=== PATIENT | male | born 1950 | race Caucasian/White ===

== ENCOUNTER 2017-03-20 05:17 | Inpatient (IN) | payer OTHER ==
[2017-03-20] VITALS (22 sets, daily range): BP systolic 87–117; BP diastolic 56–70; PULSE 78–102; RESP 17–24; Ht 168.9 cm; Wt 86.3 kg
[~2017-03-20] VITALS: Ht 168.9 cm; Wt 86.3 kg
[2017-03-20] MEDS ORDERED: CEFAZOLIN 2 GM/50 ML (PMX) 50 ML IVPB ONE (05:30)
[2017-03-20] MEDS ORDERED: OMEP40CA6 PO (06:04)
[2017-03-20] MEDS ORDERED: CANA300T PO (06:04)
[2017-03-20] MEDS ORDERED: DUTA1CPM PO (06:04)
[2017-03-20] MEDS ORDERED: ATOR10TA65 PO (06:04)
[2017-03-20] MEDS ORDERED: MELO7.5O PO (06:04)
[2017-03-20] MEDS ORDERED: ASPI-535 PO (06:04)
[2017-03-20] MEDS ORDERED: THROMBIN 5000 UNIT VIAL ONE (06:46)
[2017-03-20] MEDS ORDERED: BUPIVACAINE 0.25% (MPF) 30 ML INJ ONE (06:46)
[2017-03-20] MEDS ORDERED: BUPIVACAINE 0.25%/EPI (SDV) 30 ML INJ ONE (06:46)
[2017-03-20] MEDS ORDERED: GELATIN SIZE 100 SPONGE ONE (06:46)
[2017-03-20] MEDS ORDERED: POLYMYXIN/BACITRACIN 1L IRRIG ONE (06:47)
[2017-03-20] MEDS ORDERED: HETASTARCH 6% NACL 500 ML BAG ONE (07:00)
[2017-03-20] MEDS ORDERED: MIDAZOLAM 1 MG/ML 2 ML INJ ONE (07:26)
[2017-03-20] MEDS ORDERED: SUCCINYLCHOLINE CHLORIDE 100 MG/5 ML SYG IV ONE (07:26)
[2017-03-20] MEDS ORDERED: FENTAnyl 50 MCG/ML VIAL ONE (07:26)
[2017-03-20] MEDS ORDERED: ROCURONIUM 50 MG INJ ONE ×3 (07:26→09:13)
[2017-03-20] MEDS ORDERED: PROPOFOL 100 ML ONE ×2 (07:26→08:07)
--- NOTE | 2017-03-20 07:26 | HPN ---
Date/Time of Note Date/Time of Note DATE: 03/20/17 TIME: 07:26 Interval H&P Admission Note Pt. seen H&P reviewed: No system changes RICK EPSTEIN MD Mar 20, 2017 07:26
[2017-03-20] MEDS ORDERED: hydrALAzine 20 MG INJ ONE (08:06)
[2017-03-20] MEDS ORDERED: LABETALOL HCL 20MG INJ ONE (08:06)
[2017-03-20] MEDS ORDERED: METOCLOPRAMIDE 10 MG INJ ONE (08:08)
[2017-03-20] MEDS ORDERED: ACETAMINOPHEN 1000MG/100ML IV 100 ML ONE (08:08)
[2017-03-20] MEDS ORDERED: DEXAMETHASONE 4 MG/ML 1 ML INJ ONE (08:08)
[2017-03-20] MEDS ORDERED: FAMOTIDINE 20 MG INJ ONE (08:08)
[2017-03-20] MEDS ORDERED: ONDANSETRON 4 MG INJ ONE (08:08)
[2017-03-20] MEDS ORDERED: PHENYLephrine (100 MCG/ML) 5ML SYG ONE ×2 (08:34→09:11)
[2017-03-20] MEDS ORDERED: GLYCOPYRROLATE 0.4 MG INJ ONE (11:23)
[2017-03-20] MEDS ORDERED: NEOSTIGMINE 3 MG/3 ML SYRINGE ONE (11:23)
[2017-03-20] MEDS ORDERED: CEFAZOLIN 1 GM INJ ONE ×2 (11:28)
[2017-03-20] MEDS ORDERED: ONDANSETRON 4 MG INJ IV PRN ×2 (11:30→13:00)
[2017-03-20] MEDS ORDERED: hydrALAzine 20 MG INJ IV PRN (11:30)
[2017-03-20] MEDS ORDERED: METOCLOPRAMIDE 10 MG INJ IV PRN (11:30)
[2017-03-20] MEDS ORDERED: EPHEDrine SULFATE 50 MG/5 ML SYG IV PRN (11:30)
[2017-03-20] MEDS ORDERED: ALBUMIN HUMAN 5% 250 ML IV PRN (11:30)
[2017-03-20] MEDS ORDERED: MEPERIDINE 25 MG INJ IV PRN (11:30)
[2017-03-20] MEDS ORDERED: HYDROmorphONE (0.2 MG/ML) 10ML SYG IV PRN ×3 (11:30)
[2017-03-20] MEDS ORDERED: morphine (1 MG/ML) 10ML SYRINGE IV PRN ×3 (11:30)
[2017-03-20] MEDS ORDERED: DIPHENHYDRAMINE 50 MG INJ IV PRN (11:30)
[2017-03-20] MEDS ORDERED: LABETALOL HCL 20MG INJ IV PRN (11:30)
--- NOTE | 2017-03-20 12:23 | OPR ---
Date/Time of Note Date/Time of Note DATE: 03/20/17 TIME: 12:20 Operative Report Procedure Date: Mar 20, 2017 Preoperative Diagnosis Spinal stenosis, L3-L5 Postoperative Diagnosis Spinal stenosis, L3-L5 Operation Performed Bilateral laminectomies, L3-L4, L4-L5 Surgeon: KODAK MOSS MD commercial real estate assistant: RICK EPSTEIN MD Anesthesia: general Estimated Blood Loss: 10 - 50 ml's Complications: None Pt Condition Post Procedure: stable Disposition: PACU Operative\Procedure Findings L3-L5 bilateral minimally invasive laminectomies from right sided approach. KODAK MOSS MD Mar 20, 2017 12:23
--- NOTE | 2017-03-20 12:39 | OPR ---
Date/Time of Note Date/Time of Note DATE: 03/20/17 TIME: 12:24 Operative Report Procedure Date: Mar 20, 2017 Preoperative Diagnosis Spinal stenosis, L3-L5 Postoperative Diagnosis Spinal stenosis, L3-L5 Operation Performed Bilateral laminectomies, L3-L4, L4-L5 Surgeon: KODAK MOSS MD office administrative assistant: RICK EPSTEIN MD Anesthesia: general Estimated Blood Loss: 10 - 50 ml's Complications: None Pt Condition Post Procedure: stable Disposition: PACU Operative\Procedure Findings L3-L5 bilateral minimally invasive laminectomies from right sided approach. Procedure Description The patient was identified in the holding unit, and his questions were answered. He was taken to the operating room, given a general endotracheal and placed prone. Pressure points were checked. Appropriate lines and spinal monitoring was begun. After prep and drape and suitable marker films, a 1.5 inch incision, about 3/4 inch to the right of the midline was made. Skin had been infiltrated with marcaine with epinephrine. Fascia was incised sharply. Paraspinous muscles carefully peeled blunted from midline structures. [place] retractor inserted. L4-L5 level identified. Curettes used to removed soft tissue from bone. Drill used to removed lateral aspect of facet, lamina up to the arch, and lamina across the midline. Ligament then removed in several large blocks. Decompression inspect laterally to pedicle, well across midline to contralateral facet, and proximally and distally. [place] repositioned over L3-L4 and marker taken. Soft tissue removed from bone. Drill used to remove lateral aspect of facet, most of the L3 lamina, and medially across the midline , with removal of portion of spinous process. Ligament removed in several large blocks. Decompression inspected distally to arch, laterally to pedicle, proximally up the lamina, and across medline to contralateral facet. Attention then directed to arch. [place] adjusted. Arch dissected free of soft tissue. Patties under arch. Drilled from distal to proximal, leaving a small amount of bone. Residual bone removed with Kerr[place]. A kink in the dura, from the arch compression, was noted, and we observed it as sac diameter expanded. Wound was carefully irrigated and inspected for bleeding. It was dry. Retractors removed. Muscle infiltated with Marcaine with epinephrine. Fascia closed figure of 8 interupted with 0 vicryl. Care taken to close both layers Subcutaneous tissue with 2-0 figure of 8 vicryl. Skin with 4 monocryl and reenforced with dermbond and then dressed. returned to supine position for extubation. extubated and transferred to recovery in stable condition. KODAK MOSS MD Mar 20, 2017 12:39
[2017-03-20] MEDS ORDERED: NACL 0.9% 3 ML SYG IV SCH (13:00)
[2017-03-20] MEDS ORDERED: HYDROmorphONE 0.2 MG/ML PCA IV SCH (13:00)
[2017-03-20] MEDS ORDERED: ZOLPIDEM 5 MG TAB PO PRN (13:00)
[2017-03-20] MEDS ORDERED: NALOXONE (0.4 MG/ML) INJ IV PRN (13:00)
[2017-03-20] MEDS ORDERED: PROCHLORPERAZINE 10 MG TAB PO PRN (13:00)
[2017-03-20] MEDS ORDERED: ACETAMINOPHEN 325 MG TAB PO PRN (13:00)
[2017-03-20] MEDS ORDERED: HYDROCODONE/APAP (5/325) TAB PO PRN (13:00)
[2017-03-20] MEDS: DEXTROSE 5%-0.45% NACL 1,000 ML IV SCH (15:02)
--- NOTE | 2017-03-20 15:36 | RADRPT ---
PROCEDURE: XR Lumbar Spine. CLINICAL INDICATION: Laminectomy. TECHNIQUE: Lumbar spine x-rays, 3 intraoperative fluoroscopic views. Fluoroscopy time: 11.2 secon ds. COMPARISON: None currently available. FINDINGS: Surgical instrumentation is seen within the posterior soft tissues of the lower lumbar spine. L4-S1 degenerative disk disease is observed. IMPRESSION: L4-S1 degenerative disk disease with surgical instrumentation within the posterior lumbar soft tissu es. RPTAT: HLST .Rea Celestin MD, MD Date Time Electronically viewed and signed by .Rea Celestin MD, MD on 03/20/2017 15:36 .T/
[2017-03-20] MEDS: CEFAZOLIN 1 GM/50 ML (PMX) 50 ML IVPB SCH ×2 (17:34→23:36)
[2017-03-20] MEDS: CEPASTAT LOZENGE MT PRN (20:47)
[2017-03-21] MEDS: DEXTROSE 5%-0.45% NACL 1,000 ML IV SCH ×2 (00:23→08:39)
[2017-03-21 00:27] VITALS: BP 101/59; PULSE 89; RESP 20
[2017-03-21] MEDS: CEPASTAT LOZENGE MT PRN (04:49)
[2017-03-21] MEDS: CEFAZOLIN 1 GM/50 ML (PMX) 50 ML IVPB SCH ×2 (05:47→13:16)
--- NOTE | 2017-03-21 07:36 | PN ---
Date/Time of Note Date/Time of Note DATE: 03/21/17 TIME: 07:34 Assessment/Plan Lines/Catheters IV Catheter Type (from Nrsg): Peripheral IV Celis in Place (from Nrsg): Yes Subjective 24 Hr Interval Summary Seeing patient for Dr. Fabian. Patient is postop day #1 following lumbar laminectomy. Vital signs are stable, neurovascular structures are intact. Patient has been up ambulating with physical therapy and they are due to see him today also. He denies any leg pain, he does have preop numbness in the leg that is improving. His incisional pain 3/10. 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 Internal medicine will be consulted to follow the patient for medical management. Plan is to DC 1-2 days pending progress. Exam/Review of Systems Vital Signs Vitals Vital Signs Date Time Temp Pulse Resp B/P Pulse Ox O2 Delivery O2 Flow Rate FiO2 03/21/17 00:33 18 03/21/17 00:27 98.6 89 101/59 96 Nasal Cannula 2.0 Intake and Output 03/20/17 03/20/17 03/21/17 15:00 23:00 07:00 Intake Total 500 ml 3100 ml 2050 ml Output Total 1670 ml 1600 ml 2900 ml Balance -1170 ml 1500 ml -850 ml SARAH ZAZUETA Mar 21, 2017 07:36
--- NOTE | 2017-03-21 07:36 | OPPN ---
Date/Time of Note Date/Time of Note DATE: 03/21/17 TIME: 07:36 Post-Anesthesia Notes Post-Anesthesia Note Last documented vital signs Vital Signs Date Time Temp Pulse Resp B/P Pulse Ox O2 Delivery O2 Flow Rate FiO2 03/21/17 00:33 18 03/21/17 00:27 98.6 89 101/59 96 Nasal Cannula 2.0 Activity: WNL Respiratory function: WNL Cardiovascular function: WNL Mental status: Baseline Pain reasonably controlled: Yes Hydration appropriate: Yes Nausea/Vomiting absent: Yes ANTON VENTURA MD Mar 21, 2017 07:36
[2017-03-21] MEDS ORDERED: BETHANECHOL 25 MG TAB PO PRN (08:00)
[2017-03-21 08:13] VITALS: BP 97/56; RESP 18
[2017-03-21] MEDS: ASCORBIC ACID 500 MG TAB PO SCH ×2 (08:59→21:28)
[2017-03-21] MEDS: DOCUSATE SODIUM 100 MG CAP PO SCH ×2 (08:59→21:28)
[2017-03-21] MEDS: HYDROCODONE/APAP (5/325) TAB PO PRN ×2 (11:26→16:25)
[2017-03-21] MEDS ORDERED: PANTOPRAZOLE (EC) 40 MG TAB PO SCH (14:00)
[2017-03-21 15:29] LABS: ADD UMIC NO; URINE BILIRUBIN (Dip) NEGATIVE (NEGATIVE); URINE BLOOD (Dip) NEGATIVE (NEGATIVE); URINE COLOR LT. YELLOW (YELLOW); URINE GLUCOSE (Dip) >=1000 % (NEGATIVE); URINE KETONES (Dip) NEGATIVE (NEGATIVE); URINE LEUKOCYTE ESTERASE (Dip) NEGATIVE (NEGATIVE); URINE NITRITE (Dip) NEGATIVE (NEGATIVE); URINE TOTAL PROTEIN (Dip) NEGATIVE (NEGATIVE); URINE UROBILINOGEN (Dip) 0.2 E.U./dL (0.1-1.0)
--- NOTE | 2017-03-21 18:39 | CONS ---
Date/Time of Note Date/Time of Note DATE: 03/21/17 TIME: 18:34 Assessment/Plan Assessment/Plan Problems: (1) Status post lumbar discectomy Status: Acute Comment: At this time he appears to have done extremely well postoperatively. There is no evidence of any untoward reactions or complications at this time. Continue with physical therapy with good rehabilitation potential (2) Persistent disorder of initiating or maintaining sleep Status: Chronic Comment: Noted. Continue treatment (3) Gastroesophageal reflux disease Status: Chronic Comment: He has been well maintained using proton pump inhibitor therapy. Continue same Qualifiers: Qualified Code: K21.9 - Gastroesophageal reflux disease without esophagitis (4) Hyperlipidemia associated with type 2 diabetes mellitus Status: Chronic Comment: Continue statin therapy. (5) Diabetes mellitus type 2 in obese Status: Chronic Comment: He is not treated with insulin. His routine medication is not on formulary here at [facility] but we do have on formulary . (6) BPH (benign prostatic hyperplasia) Status: Chronic Comment: Continue his medications especially the postoperative state to avoid any possibility of urinary retention. Qualifiers: Qualified Code: N40.1 - Benign prostatic hyperplasia with lower urinary tract symptoms, unspecified morphology Consultation Date/Type/Reason Admit Date/Time Mar 20, 2017 at 05:17 Date of Consultation: Mar 21, 2017 Type of Consultation: Internal medicine Reason for Consultation Hyperlipidemia; diabetes mellitus type 2; BPH with symptoms; aftercare following spinal surgery Referring Provider: KODAK MOSS MD Hx of Present Illness Bridgette 66-year-old gentleman status post spinal surgery for persistent lumbar disc disease and sciatica had failed all conservative treatments. Please see list of medical diagnoses Constitutional: no complaints Eyes: no complaints ENT: no complaints Respiratory: no complaints Cardiovascular: no complaints Gastrointestinal: no complaints Genitourinary: no complaints Musculoskeletal: no complaints Skin: no complaints Neurologic: no complaints Endocrine: no complaints Lymphatic: no complaints Psychological: nl mood/affect, no complaints Immunologic: no complaints Past Medical History Osteoarthritis; disorders of initiating and maintaining sleep; Medical History: diabetes, GERD, high cholesterol Past Surgical History Past Surgical Hx: no surgical history Family History Significant Family History: heart disease, diabetes, hypertension Social History Alcohol Use: rarely Smoking Status: Former smoker (Quit 2011) Drug Use: none Exam/Review of Systems Vital Signs Vitals Vital Signs Date Time Temp Pulse Resp B/P Pulse Ox O2 Delivery O2 Flow Rate FiO2 03/21/17 09:16 20 03/21/17 08:13 97.7 68 97/56 97 03/21/17 00:27 Nasal Cannula 2.0 Intake and Output 03/20/17 03/20/17 03/21/17 15:00 23:00 07:00 Intake Total 500 ml 3100 ml 2050 ml Output Total 1670 ml 1600 ml 2900 ml Balance -1170 ml 1500 ml -850 ml Exam Constitutional: alert, oriented Head: atraumatic, normocephalic Eyes: EOMI, nl conjunctiva, nl lids, nl sclera ENMT: nl external ears & nose, nl lips & teeth, nl nasal mucosa & septum Neck: non-tender, supple Respiratory: clear to auscultation, normal air movement Cardiovascular: nl pulses, regular rate and rhythm Gastrointestinal: nl liver, spleen, non-tender, soft Musculoskeletal: nl extremities to inspection Extremities: normal pulses Neurological: PEDIATRIC SOCIAL WORKER II-XII intact, nl mental status, nl speech Skin: nl turgor, rash or lesions Results Results 24 hrs Laboratory Tests Test 03/21/17 09:00 Urine Color LT. YELLOW Urine Clarity CLEAR Urine pH 5.5 Urine Specific [place] <=1.005 L Urine Ketones NEGATIVE Urine Nitrite NEGATIVE Urine Bilirubin NEGATIVE Urine Urobilinogen 0.2 E.U./dL Urine Leukocyte Esterase NEGATIVE Urine Hemoglobin NEGATIVE Urine Glucose >=1000 Urine Total Protein NEGATIVE Medications Medications Current Medications Acetaminophen/ Hydrocodone Bitart (Challenge (5/325)) 1 tab Q4H PRN PO PAIN LEVEL 1 -5 Last administered on 03/21/17t 16:25; Admin Dose 1 TAB; Start 03/20/17 at 13: 00 Acetaminophen/ Hydrocodone Bitart (Challenge (5/325)) 2 tab Q4H PRN PO PAIN LEVEL 6 -10; Start 03/20/17 at 13:00 Zolpidem Tartrate (Ambien) 5 mg HS PRN PO INSOMNIA; Start 03/20/17 at 13:00 Prochlorperazine (Compazine) 10 mg Q4H PRN PO NAUSEA AND/OR VOMITING; Start 09/24 at 13:00 Ondansetron HCl (Zofran Inj) 4 mg Q6H PRN IV NAUSEA AND/OR VOMITING; Start 09/24 at 13:00 Docusate Sodium (Colace) 100 mg BID PO Last administered on 03/21/17 08:59; Admin Dose 100 MG; Start 03/21/17 at 09:00 Acetaminophen (Tylenol Tab) 650 mg Q4H PRN PO TEMP GREATER THAN 101F OR VEGAS; Start 03/20/17 at 13:00 Ascorbic Acid (Vitamin C) 1,000 mg BID PO Last administered on 03/21/17 08:59 ; Admin Dose 1,000 MG; Start 03/21/17 at 09:00 Hydromorphone HCl (Dilaudid E[employer]AGE) Q4PCA IV Last administered on 03/20/17 13:15 ; Admin Dose 6 MG; Start 03/20/17 at 13:00 Naloxone HCl (Narcan) 0.2 mg Q2M PRN IV RR 8 BREATHS/MIN OR LESS; Start at 13:00 Phenol (Cepastat Lozenge) 1 lozenge Q1H PRN MT SORE THROAT Last administered on 03/21/17 04:49; Admin Dose 1 LOZENGE; Start 03/20/17 at 21:00 Bethanechol Chloride (Urecholine) 25 mg PRN PRN PO UNABLE TO VOID Last administered on 03/21/17 09:15; Admin Dose 25 MG; Start 03/21/17 at 08:00 Pantoprazole (Protonix Tab) 40 mg DAILY PO Last administered on 03/21/17 14:32 ; Admin Dose 40 MG; Start 03/21/17 at 14:00 Tamsulosin HCl (Flomax) 0.4 mg QHS PO ; Start 03/21/17 at 21:00 VIELKA BARRETT MD Mar 21, 2017 18:39
[2017-03-21 19:21] VITALS: BP 100/55; RESP 18
[2017-03-21] MEDS ORDERED: DEXTROSE 50% 50 ML SYRINGE IV PRN ×2 (19:30)
[2017-03-21] MEDS ORDERED: GLUCAGON 1 MG INJ IM PRN (19:30)
[2017-03-21] MEDS ORDERED: GLUCOSE GEL 15 GRAM TUBE BUCCAL PRN (19:30)
[2017-03-21] MEDS ORDERED: GLUCOSE GEL 15 GRAM TUBE PO PRN ×2 (19:30)
[2017-03-21] MEDS ORDERED: ATORVASTATIN 10 MG TAB PO SCH (21:00)
[2017-03-21] MEDS ORDERED: TAMSULOSIN (SR) 0.4 MG CAP PO SCH ×2 (21:00)
[2017-03-21] MEDS: DUTASTERIDE 0.5 MG CAP PO SCH (21:28)
[2017-03-21 21:41] VITALS: PULSE 94; RESP 18
[2017-03-22] MEDS ORDERED: PANTOPRAZOLE (EC) 40 MG TAB PO SCH (06:00)
[2017-03-22] MEDS: HYDROCODONE/APAP (5/325) TAB PO PRN ×3 (06:56→14:00)
[2017-03-22 07:55] VITALS: BP 114/64; RESP 19
[2017-03-22] MEDS ORDERED: EMPAGLIFLOZIN 10 MG TABLET PO SCH (08:00)
[2017-03-22] MEDS: DUTASTERIDE 0.5 MG CAP PO SCH (08:35)
[2017-03-22] MEDS: ASCORBIC ACID 500 MG TAB PO SCH (08:36)
[2017-03-22] MEDS: DOCUSATE SODIUM 100 MG CAP PO SCH (08:36)
--- NOTE | 2017-03-22 12:50 | CONS ---
Date/Time of Note Date/Time of Note DATE: 03/22/17 TIME: 12:49 Assessment/Plan Assessment/Plan Chief Complaint/Hosp Course Bridgette 66-year-old gentleman status post spinal surgery for persistent lumbar disc disease and sciatica had failed all conservative treatments. Please see list of medical diagnoses Problems: (1) BPH (benign prostatic hyperplasia) Status: Chronic Comment: Stable and controlled on medication regimen appropriate for discharge Qualifiers: Prostatic enlargement morphology: unspecified morphology Lower urinary tract symptom presence: symptoms present Qualified Code: N40.1 - Benign prostatic hyperplasia with lower urinary tract symptoms, unspecified morphology (2) Diabetes mellitus type 2 in obese Status: Chronic Comment: Well-controlled on current medication. Appropriate for discharge (3) Lumbar disc disease Status: Chronic Comment: Postoperatively and appears to be doing quite well. Appropriate for discharge (4) Hyperlipidemia associated with type 2 diabetes mellitus Status: Chronic Comment: Successfully on statin therapy (5) Gastroesophageal reflux disease Status: Chronic Comment: Controlled with medications Qualifiers: Esophagitis presence: without esophagitis Qualified Code: K21.9 - Gastroesophageal reflux disease without esophagitis (6) Status post lumbar discectomy Status: Acute Comment: He has gone through the surgery without any evidence of untoward effects complications or outcomes. He is doing well and at this point time is stable for outpatient therapy/discharge. Consultation Date/Type/Reason Admit Date/Time Mar 20, 2017 at 05:17 Initial Consult Date 03/21/17 Type of Consultation: Internal medicine Referring Provider: KODAK MOSS MD 24 HR Interval Summary Free Text/Dictation Patient without complaints and doing well. Preparing for discharge Constitutional: no complaints Detailed Summary Respiratory: no complaints Cardiovascular: no complaints Gastrointestinal: no complaints Exam/Review of Systems Vital Signs Vitals Vital Signs Date Time Temp Pulse Resp B/P Pulse Ox O2 Delivery O2 Flow Rate FiO2 03/22/17 07:55 98.8 82 19 114/64 98 03/21/17 21:41 Room Air 03/21/17 00:27 2.0 Intake and Output 03/21/17 03/21/17 03/22/17 15:00 23:00 07:00 Intake Total 350 ml 600 ml Balance 350 ml 600 ml Exam Constitutional: alert, oriented Neck: non-tender, supple Respiratory: clear to auscultation, normal air movement Cardiovascular: nl pulses, regular rate and rhythm Medications Medications Current Medications Acetaminophen/ Hydrocodone Bitart (Marana (5/325)) 1 tab Q4H PRN PO PAIN LEVEL 1 -5 Last administered on 03/22/17 11:30; Admin Dose 1 TAB; Start 03/20/17 at 13: 00 Acetaminophen/ Hydrocodone Bitart (Marana (5/325)) 2 tab Q4H PRN PO PAIN LEVEL 6 -10; Start 03/20/17 at 13:00 Zolpidem Tartrate (Ambien) 5 mg HS PRN PO INSOMNIA; Start 03/20/17 at 13:00 Prochlorperazine (Compazine) 10 mg Q4H PRN PO NAUSEA AND/OR VOMITING; Start 09/24 at 13:00 Ondansetron HCl (Zofran Inj) 4 mg Q6H PRN IV NAUSEA AND/OR VOMITING; Start 09/24 at 13:00 Docusate Sodium (Colace) 100 mg BID PO Last administered on 03/22/17 08:36; Admin Dose 100 MG; Start 03/21/17 at 09:00 Acetaminophen (Tylenol Tab) 650 mg Q4H PRN PO TEMP GREATER THAN 101F OR [place]; Start 03/20/17 at 13:00 Ascorbic Acid (Vitamin C) 1,000 mg BID PO Last administered on 03/22/17 08:36 ; Admin Dose 1,000 MG; Start 03/21/17 at 09:00 Hydromorphone HCl (Dilaudid NEUROLOGY HOSPITALIST) Q4PCA IV Last administered on 03/20/17 13:15 ; Admin Dose 6 MG; Start 03/20/17 at 13:00 Naloxone HCl (Narcan) 0.2 mg Q2M PRN IV RR 8 BREATHS/MIN OR LESS; Start at 13:00 Phenol (Cepastat Lozenge) 1 lozenge Q1H PRN MT SORE THROAT Last administered on 03/21/17 04:49; Admin Dose 1 LOZENGE; Start 03/20/17 at 21:00 Bethanechol Chloride (Urecholine) 25 mg PRN PRN PO UNABLE TO VOID Last administered on 03/21/17 09:15; Admin Dose 25 MG; Start 03/21/17 at 08:00 Tamsulosin HCl (Flomax) 0.4 mg QHS PO Last administered on 03/21/17 21:28; Admin Dose 0.4 MG; Start 03/21/17 at 21:00 Atorvastatin Calcium (Lipitor) 10 mg QHS PO Last administered on 03/21/17 21: 28; Admin Dose 10 MG; Start 03/21/17 at 21:00 Pantoprazole (Protonix Tab) 40 mg DAILY@06 PO Last administered on 03/22/17 05 :33; Admin Dose 40 MG; Start 03/22/17 at 06:00 Empaglifozin (Jardiance) 10 mg DAILY@08 PO Last administered on 03/22/17 08:35 ; Admin Dose 10 MG; Start 03/22/17 at 08:00 Dutasteride (Avodart) 0.5 mg DAILY PO Last administered on 03/22/17 08:35; Admin Dose 0.5 MG; Start 03/21/17 at 21:00 Miscellaneous Information 1 ea NOTE XX ; Start 03/21/17 at 19:30 Glucose (Glutose) 15 gm Q15M PRN PO DECREASED GLUCOSE; Start 03/21/17 at 19:30 Glucose (Glutose) 22.5 gm Q15M PRN PO DECREASED GLUCOSE; Start 03/21/17 at 19: 30 Dextrose (D50w Syringe) 25 ml Q15M PRN IV DECREASED GLUCOSE; Start 03/21/17 at 19:30 Dextrose (D50w Syringe) 50 ml Q15M PRN IV DECREASED GLUCOSE; Start 03/21/17 at 19:30 Glucagon (Glucagen) 1 mg Q15M PRN IM DECREASED GLUCOSE; Start 03/21/17 at 19:30 Glucose (Glutose) 15 gm Q15M PRN BUCCAL DECREASED GLUCOSE; Start 03/21/17 at 19 :30 VIELKA BARRETT MD Mar 22, 2017 12:50
--- NOTE | 2017-03-24 15:14 | DS ---
Date/Time of Note Date/Time of Note DATE: 03/24/17 TIME: 15:11 Discharge Summary Admission/Discharge Info Admit Date/Time Mar 20, 2017 at 05:17 Discharge Date/Time Mar 22, 2017 at 15:30 Final Diagnosis SPINAL STENOSIS, L3-L5 S/P MIS DECOMPRESSION FOR SPINAL STENOSIS, L3-L5 BILATERALLY Patient Condition: Good Hospital Course Bridgette 66-year-old gentleman status post spinal surgery for persistent lumbar disc disease and sciatica had failed all conservative treatments. Please see list of medical diagnoses Home Meds Reported Medications Dutasteride-Tamsulosin Hcl (Gabrielle) 0.5-0.4 Mg Capsule, 1 CAP PO DAILY, CAP 03/20/17 Omeprazole* (Omeprazole*) 40 Mg Capsule.dr, 40 MG PO DAILY, #30 CAP 03/20/17 Canagliflozin (Invokana) 300 Mg Tablet, 300 MG PO DAILY, TAB 03/20/17 Atorvastatin Calcium (Atorvastatin Calcium) 10 Mg Tablet, 10 MG PO QHS, #30 TAB 03/20/17 Discontinued Reported Medications Aspirin Ec (Aspir 81) 81 Mg Tablet.dr, 81 MG PO DAILY, #30 TAB 03/20/17 Meloxicam* (Meloxicam*) 7.5 Mg/5 Ml Oral.susp, 15 MG PO DAILY, #300 ML 03/20/17 Follow-up Plan SEE [facility]ICE 03/30/17 AMBULATE TO TOLERANCE KEEP WOUND DRY Primary Care Provider Not On Staff Doctor ORTHOPAEDIC FOLLOW UP IS WITH ME Time spent on discharge: < 30 minutes Pending Labs Laboratory Tests Test 03/24/17 12:25 Lab Scanned Report REFERENCE [id number] KODAK MOSS MD Mar 24, 2017 15:14
== END 2017-03-22 15:30 | disposition home or self-care (01) | DRG 517 ==
LOC: REC 05:17 → MS1 13:46
PROVIDERS: ADMIT Specialist; ATTEND Specialist
PROC: 01NB0ZZ Release Lumbar Nerve, Open Approach (ICD-10-PCS; principal; 2017-03-20 07:30)
DX: M48.06 Spinal stenosis, lumbar region (principal); E11.69 Type 2 diabetes mellitus with other specified complication; E78.5 Hyperlipidemia, unspecified; K21.9 Gastro-esophageal reflux disease without esophagitis; E66.9 Obesity, unspecified; N40.0 Benign prostatic hyperplasia without lower urinary tract symptoms; M54.30 Sciatica, unspecified side; G47.9 Sleep disorder, unspecified; Z68.30 Body mass index [BMI] 30.0-30.9, adult
CPT/HCPCS: 72100; 81003; 82962; 87086; 97116; 97162; J0131; J0360; J0690; J1100; J1170; J2250; J2370; J2405; J2710; J2765; J3010; J7042; J7999